=== PATIENT | male | born 1970 | race Caucasian/White ===

== ENCOUNTER 2019-05-29 18:46 | Emergency (ER) | payer BC ==
[~2019-05-29] VITALS: Ht 172.7 cm; Wt 77.9 kg
[~2019-05-29 18:46] MED LIST: ACET1TAB40 PO; DOXY100T34 PO
[2019-05-29 19:04] VITALS: BP 162/88; PULSE 101; RESP 16; Ht 172.7 cm; Wt 77.9 kg
[2019-05-29] MEDS ORDERED: LIDOCAINE 1% (MDV) 20 ML INJ SC ONE (20:00)
[2019-05-29] MEDS ORDERED: ACETAMINOPHEN 325 MG TAB PO ONE (20:00)
== END 2019-05-29 20:48 | disposition home or self-care (01) ==
LOC: FTE 18:46
DX: L72.3 Sebaceous cyst (principal); F17.210 Nicotine dependence, cigarettes, uncomplicated; L02.01 Cutaneous abscess of face; E11.9 Type 2 diabetes mellitus without complications; I10 Essential (primary) hypertension